=== PATIENT | male | born 1960 | race Caucasian/White ===

== ENCOUNTER → 2021-12-17 | Outpatient (CLI) | payer OTHER ==
--- NOTE | 2021-12-17 19:25 | CA ---
Transthoracic Echo Report Name: Benja Lynne Age: 61 Gender: M : 1960 Exam Date: 12/17/2021 16:05 Exam Location: [facility] Ht (in): 72 Wt (lb): 220 Ordering Physician: Iraj Khoury MD Attending/Referring Phys: Sergio Lawson [facility] Search Marketing Coordinator Leisa Martins, MOO Procedure CPT: Indications: R01.1 cardiac murmur Cardiac Hx: Chol Technical Quality: Good Contrast 1: N/A Total Dose (mL): Contrast 2: Total Dose (mL): MEASUREMENTS (Male / Female) Normal Values 2D ECHO LV Diastolic Diameter PLAX 4.6 cm 4.2 - 5.9 / 3.9 - 5.3 cm LV Systolic Diameter PLAX 3.7 cm IVS Diastolic Thickness 1.2 cm 0.6 - 1.0 / 0.6 - 0.9 cm LVPW Diastolic Thickness 1.3 cm 0.6 - 1.0 / 0.6 - 0.9 cm LV Relative Wall Thickness 0.6 RV Internal Dim ED PLAX 3.1 cm LA Volume 63.4 cm??? 18 - 58 / 22 - 52 cm??? M-MODE Aortic Root Diameter MM 3.5 cm LA Systolic Diameter MM 4.0 cm LA Ao Ratio MM 1.1 MV E Point Septal Separation 0.2 cm AV Cusp Separation MM 2.2 cm DOPPLER Mitral E Point Velocity 69.6 cm/s Mitral A Point Velocity 77.9 cm/s Mitral E to A Ratio 0.9 MV E' Velocity 8.2 cm/s Mitral E to MV E' Ratio 8.5 TR Peak Velocity 194.3 cm/s TR Peak Gradient 15.1 mmHg Right Ventricular Systolic Press 20.1 mmHg FINDINGS Left Ventricle left ventricular cavity size normal. t ventricular ejection fraction is estimated at 55-60%. Mildly increased left ventricular wall thickness. Right Ventricle Normal right ventricular size and function. Right ventricular systolic pressure within normal limits. Right Atrium Normal right atrial size. Left Atrium Mildly increased left atrial volume. Mitral Valve Moderate prolapse of the posterior mitral valve leaflet. Moderate mitral regurgitation. Aortic Valve Trileaflet aortic valve. Tricuspid Valve Structurally normal tricuspid valve. No evidence of pulmonary hypertension. Pulmonic Valve Structurally normal pulmonic valve. Pericardium Normal pericardium. Aorta Normal size aortic root and proximal ascending aorta. CONCLUSIONS Normal LV systolic function Posterior mitral leaflet prolapse with moderate MR Previewed by: Dr. Newotn Apple MD (Electronically Signed) Final Date: 17 Dec 2021 19:25
== END | disposition home or self-care (01) ==
LOC: RADECHMAIN 16:02
PROVIDERS: ATTEND Family Medicine
DX: R01.1 Cardiac murmur, unspecified (principal)
CPT/HCPCS: 93306

== ENCOUNTER → 2023-12-22 | Outpatient (CLI) | payer OTHER ==
--- NOTE | 2023-12-22 09:30 | XR ---
EXAMINATION TYPE: XR shoulder complete RT DATE OF EXAM: 12/22/2023 COMPARISON: NONE HISTORY: Pain TECHNIQUE: Three views are submitted. FINDINGS: The osseous structures are intact. There is no acute fracture or dislocation. AC joint arthropathy. Punctate densities involving the right pulmonary vessel on end,. IMPRESSION: 1. Severe AC joint arthropathy. If concern for rotator cuff disease correlate with MRI..
== END | disposition home or self-care (01) ==
LOC: RADXRMAIN 08:24
PROVIDERS: ATTEND Family Medicine
DX: Z00.00 Encounter for general adult medical examination without abnormal findings (principal); M19.011 Primary osteoarthritis, right shoulder

== ENCOUNTER → 2024-01-21 | Outpatient (CLI) | payer OTHER ==
--- NOTE | 2024-01-21 11:41 | CTL ---
EXAMINATION TYPE: CT Low Dose Lung DATE OF EXAM ORDERED: 01/21/2024 History: Lung cancer screening CT DLP: 4.[address] CTDI: 159.4 mGy Automated exposure control for dose reduction was used. Comparison: None TECHNIQUE: Low dose computed tomography scan was performed through the chest at 1 mm thick sections and reconstructed images in multiple planes at 1 mm and [address] DIAGNOSTIC QUALITY: Satisfactory FINDINGS: There are multiple pleural-based nodules on the right the largest of which is approximately 8 mm. There are 2 approximate 6 mm left upper lobe pulmonary nodules. There is no evidence normal airspace consolidation or abnormal interstitial density. There is no pleural effusion or pneumothorax. The great vessels just normal is no mediastinal, hilar or axillary adenopathy. Limited scanning of the upper abdomen reveals no gross abnormality. No focal osseous lesions are seen. IMPRESSION: 1. Lung RADS category 3, likely benign. Multiple pulmonary nodules as described. Six-month follow-up is recommended to confirm stability. 2. No acute cardiopulmonary disease.
== END | disposition home or self-care (01) ==
LOC: RADCTMAIN 08:09
PROVIDERS: ATTEND Family Medicine
DX: Z12.2 Encounter for screening for malignant neoplasm of respiratory organs (principal); F17.210 Nicotine dependence, cigarettes, uncomplicated; R91.8 Other nonspecific abnormal finding of lung field
CPT/HCPCS: 71271

== ENCOUNTER → 2024-09-16 | Outpatient (CLI) | payer BC ==
--- NOTE | 2024-09-16 08:27 | CTL ---
EXAMINATION TYPE: CT Low Dose Lung DATE OF EXAM ORDERED: 09/16/2024 COMPARISON: CT Low Dose Lung 01/21/2024 CLINICAL INDICATION: Male, 64 years old with history of Z12.2 SCREENING LUNG CA F17.210 CURRENT SMOKE R; [facility], , Lung cancer screening, History of Smoking/tobacco use. TECHNIQUE: Low dose computed tomography scan was performed through the chest at 1 mm thick sections a nd reconstructed images in multiple planes at 1 mm and [address] DLP: 102.[address] CTDI: 2.60 mGy Automated exposure control for dose reduction was used. CT DIAGNOSTIC QUALITY: Satisfactory FINDINGS: Nodules: Stable right middle lobe 8.7 mm pulmonary nodule abutting the minor fissure (series 4, image 176). Ma y represent intrafissural lymph node. Stable right upper lobe 4.7 mm pulmonary nodule (series 4, image 64). Stable right midlung 6.7 mm pulmonary nodule abutting the minor fissure (series 4, image 170). May re present an intrafissural lymph node. Other previously seen pulmonary nodules are not appreciated on today's exam. LUNGS: COPD: Severity: None Fibrosis: Severity: None Lymph nodes: None Other findings: None RIGHT PLEURAL SPACE: Effusion: None Calcification: None Thickening: None Pneumothorax: None LEFT PLEURAL SPACE: Effusion: None Calcification: None Thickening: None Pneumothorax: None HEART: Heart Size: Normal Coronary Calcification: Small Pericardial Effusion: None OTHER FINDINGS: Upper abdomen: None Bony thorax: None Supraclavicular region: None Other: None IMPRESSION: Few stable right lung pulmonary nodules. A couple may represent intrafissural lymph nodes . CT LUNG RAD AND CT CHEST RECOMMENDATION: S Modifier (other clinically significant findings): None [facility], , 09/16/2024 8:25 AM
== END | disposition home or self-care (01) ==
LOC: RADCTMAIN 07:50
PROVIDERS: ATTEND Family Medicine
DX: Z12.2 Encounter for screening for malignant neoplasm of respiratory organs (principal); F17.210 Nicotine dependence, cigarettes, uncomplicated; R91.8 Other nonspecific abnormal finding of lung field
CPT/HCPCS: 71271